=== PATIENT | male | born 2005 | race Caucasian/White ===

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

== ENCOUNTER 2025-08-21 01:25 | Emergency (ER) | payer BC ==
[~2025-08-21] VITALS: Ht 177.8 cm; Wt 70.8 kg
[2025-08-21] MEDS ORDERED: LORAZEPAM 2 MG/1 ML VIAL ONE (01:41)
[2025-08-21] MEDS: LORAZEPAM 2 MG/1 ML VIAL IV ONE (01:45)
[2025-08-21 01:54] VITALS: BP 151/102
[2025-08-21 02:08] LABS: PLATELET COUNT (AUTO) 342 K/uL (152-348); RED BLOOD CELL COUNT(AUTO) 5.28 MIL/uL (4.06-5.63); RED CELL DISTRIBUTION WIDTH 12.8 % (12.1-16.2); WHITE BLOOD COUNT (AUTO) 10.7 K/uL (3.6-10.2)
[2025-08-21 02:09] LABS: CREATININE 1.0 mg/dL (0.6-1.3); SODIUM SERUM 140 mmol/L (136-145); UREA NITROGEN, BLOOD 13 mg/dL (7-18)
[2025-08-21 02:14] LABS: ASPARTATE AMINOTRANSFERASE 12 U/L (15-37); TOTAL PROTEIN, SERUM 8.1 g/dL (6.4-8.2)
[2025-08-21] MEDS ORDERED: POTASSIUM CHLORIDE 20 MEQ TAB.PRT.SR ONE (02:27)
[2025-08-21] MEDS: POTASSIUM CHLORIDE 20 MEQ TAB.PRT.SR PO ONE (02:37)
[2025-08-21] MEDS: IV NS 1000 ML 1,000 ML IV ONE (02:37)
[2025-08-21] MEDS ORDERED: LORAZEPAM 1 MG TABLET ONE (02:48)
[2025-08-21] MEDS: LORAZEPAM 0.5 MG TABLET PO ONE (02:49)
[2025-08-21 03:13] VITALS: BP 118/72; TEMP 98.1; O2SAT 100
== END 2025-08-21 03:15 | disposition home or self-care (01) ==
LOC: ER 01:28
DX: R07.89 Other chest pain (principal); T40.715A Adverse effect of cannabis, initial encounter; R03.0 Elevated blood-pressure reading, without diagnosis of hypertension; R00.0 Tachycardia, unspecified; I11.0 Hypertensive heart disease with heart failure; E87.6 Hypokalemia; Z86.79 Personal history of other diseases of the circulatory system; Z88.7 Allergy status to serum and vaccine
CPT/HCPCS: 99285; 96374; 71045; 96361; 80076; 80048; 83880; 83735; 85025; 85730; 84484; 36415; 93005; J2060; J7040; A4606; A4663